=== PATIENT | female | born 1975 | race Caucasian/White ===

== ENCOUNTER 2019-12-24 10:08 | Outpatient (REF) | payer MEDICARE, MEDICAID, SELFPAY ==
[2019-12-24 14:44] LABS: Free T4 (Free Thyroxine) 1.26 ng/dL (0.71-1.85); Free T4 (Free Thyroxine) 1.36 ng/dL (0.71-1.85); Thyroid Stimulating Hormone 2.38 mIU/mL (0.32-4.0); Thyroid Stimulating Hormone 2.63 mIU/mL (0.32-4.0)
[2019-12-25 09:21] LABS: Follicle Stimulating Hormone 66.2 mIU/mL; Lutenizing Hormone 22.4 mIU/mL; Triiodothyronine T3 Total 104 ng/dL (76-181)
[2019-12-30 01:07] LABS: FT4 by Equilib. Dialysis 1.6 ng/dL (0.9-2.2)
[2019-12-30 20:22] LABS: Estradiol Ultra Sensitive 4 pg/mL
[2019-12-31 22:21] LABS: Estradiol Free 0.13 pg/mL; Estradiol, Ultrasensitive 6 pg/mL
[2020-01-01 00:12] LABS: Estrogen 67.2 pg/mL
== END 2019-12-24 10:09 | disposition home or self-care (01) ==
LOC: HO.10HDL 10:08
PROVIDERS: Visit Provider Internal Medicine Endocrinology, Diabetes & Metabolism
DX: E03.9 Hypothyroidism, unspecified (principal); R23.2 Flushing
CPT/HCPCS: 82670; 82672; 83001; 83002; 84439; 84443; 84480

== ENCOUNTER 2019-12-27 10:45 | Outpatient (REF) | payer MEDICARE, MEDICAID, SELFPAY ==
[2019-12-28 19:07] LABS: Triiodothyronine T3 Total 184 ng/dL (76-181)
== END 2019-12-27 10:46 | disposition home or self-care (01) ==
LOC: HO.10HDL 10:45
PROVIDERS: PCP Nurse Practitioner Family; Visit Provider Internal Medicine Endocrinology, Diabetes & Metabolism
DX: E03.9 Hypothyroidism, unspecified (principal)
CPT/HCPCS: 84480

== ENCOUNTER → 2020-05-29 12:41 | Outpatient (BNVA) | payer MEDICARE, MEDICAID, SELFPAY | PROVIDERS: PCP Nurse Practitioner Family; Referring Provider Nurse Practitioner Family; Visit Provider Internal Medicine Endocrinology, Diabetes & Metabolism | DX: E03.9 Hypothyroidism, unspecified (principal); N95.1 Menopausal and female climacteric states | CPT/HCPCS: Q3014 ==

== ENCOUNTER 2020-06-27 10:54 | Outpatient (REF) | payer MEDICARE, MEDICAID, SELFPAY ==
[2020-06-27 14:43] LABS: Thyroid Stimulating Hormone 0.15 uIU/mL (0.32-4.0)
== END 2020-06-27 10:55 | disposition home or self-care (01) ==
LOC: HO.10HDL 10:54
PROVIDERS: Visit Provider Internal Medicine Endocrinology, Diabetes & Metabolism
DX: E03.9 Hypothyroidism, unspecified (principal)
CPT/HCPCS: 36415; 84439; 84443

== ENCOUNTER 2024-08-09 20:35 | Emergency (ER) | payer MEDICARE, MEDICAID, SELFPAY ==
--- NOTE | 2024-08-09 | ECG_ITS ---
Test Reason : SYNCOPE Blood Pressure : */* mmHG Vent. Rate : 61 BPM Atrial Rate : 61 BPM P-R Int : 172 ms QRS Dur : 76 ms QT Int : 402 ms P-R-T Axes : 38 3 12 degrees QTcB Int : 404 ms Normal sinus rhythm Cannot rule out Inferior infarct , age undetermined ; can be normal variant Borderline ECG No previous ECGs available Referred By: Generic ED Physician Electronically Signed By: CHRISTINA LAWRENCE
--- NOTE | ~2024-08-09 | CT_ITS ---
CLINICAL HISTORY: s p fall CT Head WO Contrast COMPARISON: None FINDINGS: No acute intracranial hemorrhage. No evidence of acute infarction. No mass-effect or midline shift. No hydrocephalus. Visualized paranasal sinuses are clear. The mastoid air cells are clear. The visible orbits are normal. No acute fracture. Right parietal scalp soft tissue injury. IMPRESSION: No acute intracranial findings. Scalp soft tissue injury. This document has been electronically signed by: Martir Landa MD on 08/10/2024 01:37:20
--- NOTE | ~2024-08-09 | CT_ITS ---
CLINICAL HISTORY: fall CT Cervical Spine WO Contrast COMPARISON: None FINDINGS: No acute fracture or malalignment. Mild degenerative changes in the spine. Soft tissues are normal. Lung apices are clear. IMPRESSION: No acute findings. This document has been electronically signed by: Martir Landa MD on 08/10/2024 01:27:06
[2024-08-09 20:48] VITALS: BP 124/66; BP 97/53; PULSE 64; PULSE 66; RESP 20; TEMP 36; O2SAT 100; BMI 26.6
[2024-08-09 21:26] LABS: MANUAL DIFF FLAG NO
[2024-08-09 21:31] LABS: Basophils Absolute Auto 0.1 X10*3/uL (0.0-0.2); Basophils Percent Auto 0.6 % (0-2); Eosinophils Absolute Auto 0.2 X10*3/uL (0.0-0.4); Eosinophils Percent Auto 1.7 % (0-4); Hematocrit 42.1 % (37.0-47.0); Hemoglobin 13.2 g/dl (12.0-16.0); Imm Gran Abs Auto 0.09 X10*3/uL (0.00-0.03); Imm Gran Pct Auto 0.6 % (0.0-0.4); Lymphocytes Absolute Auto 4.6 X10*3/uL (1.2-4.9); Lymphocytes Percent Auto 32.9 % (20-40); Mean Corpuscular HGB Conc 31.4 g/dl (31.0-35.0); Mean Corpuscular Volume 89.4 fL (80.0-98.0); Mean Platelet Volume 10.1 fL (9.4-12.3); Monocytes Absolute Auto 0.8 X10*3/uL (0.1-1.2); Monocytes Percent Auto 5.7 % (2-11); Neutrophils Absolute Auto 8.2 x10*3/uL (2.0-8.3); Neutrophils Percent Auto 58.5 % (45-73); Platelet Count 350 X10*3/uL (160-400); Red Blood Count 4.71 X10*6/uL (4.20-5.50); Red Cell Distribution Width 14.1 % (11.0-16.0)
[2024-08-09 21:45] LABS: Alanine Aminotransferase 14 U/L (0-31); Albumin Level 4.5 g/dL (3.5-5.0); Alkaline Phosphatase 86 U/L (39-117); Anion Gap 12 (12-20); Aspartate Amino Transferase 15 U/L (5-31); Bilirubin Total 0.2 mg/dL (0.0-1.0); Blood Urea Nitrogen 16 mg/dL (9-16); Calcium 9.7 mg/dL (8.4-10.2); Carbon Dioxide 25 mmol/L (22-29); Chloride 109 mmol/L (96-108); Creatinine Clr Calc Pharmacy 75.7; Estimated Glomerular Filt Rate > 60; Glucose Random 112 mg/dL (60-115); Potassium 4.3 mmol/L (3.3-5.1); Sodium 142 mmol/L (135-145); Total Protein 7.1 g/dL (6.5-8.0)
[2024-08-09 22:06] LABS: Troponin-I High Sensitivity < 2.7 ng/L (<3.5-17.0)
--- NOTE | 2024-08-09 23:05 | ED_ITS ---
HPI - Syncope General Chief Complaint: Syncope Stated Complaint: SYNCOPE Time Seen by Provider: 08/09/24 23:00 Source: patient Mode of arrival: ambulatory Limitations: no limitations History of Present Illness ED Provider: HPI narrative: patient's history of hypothyroidism otherwise healthy no family history of seizures no history of syncope was at the [employer] game standing suddenly syncopized fell and hit the head to the curb psych family member noticed patient was with increased tone and eyes up rolled no seizure activity patient does not remember the event and was noted to be confused after the event no incontinence no tongue bite denies any chest pain or palpitation Related Data Home Medications ?Medication ?Instructions ?Recorded ?Confirmed clonazepam 1 mg tablet 1 mg PO BEDTIME PRN 05/29/20 05/29/20 dicyclomine 20 mg tablet 20 mg PO QID 05/29/20 05/29/20 lamotrigine 150 mg tablet 150 mg PO DAILY 05/29/20 05/29/20 olanzapine 2.5 mg tablet 2.5 mg PO BEDTIME 05/29/20 05/29/20 prazosin 5 mg capsule 5 mg PO BEDTIME 05/29/20 05/29/20 Previous Rx's ?Medication ?Instructions ?Recorded Tirosint 150 mcg capsule 300 mcg (2 x 150 mcg) PO DAILY 30 12/19/20 (levothyroxine) days #60 caps Allergies Allergy/AdvReac Type Severity Reaction Status Date / Time acetaminophen [Percocet] Allergy Unknown Unknown Verified 08/09/24 20:51 oxycodone [Percocet] Allergy Unknown Unknown Verified 08/09/24 20:51 tramadol Allergy Unknown Unknown Verified 08/09/24 20:51 ziprasidone [Geodon] Allergy Unknown Unknown Verified 08/09/24 20:51 Ibuprofen Allergy Unknown Unknown Uncoded 08/09/24 20:51 Review of Systems 2 Review of Systems: Yes all other systems are reviewed and are negative PMF Past Medical History Medical History Vasomotor symptoms due to menopause Hot flashes Hypothyroidism Surgical History History of right oophorectomy Hx of hysterectomy Hx of cholecystectomy Family History Family History Mother Diabetes Social History Social History Household Members: None Advance Directives: No Advance Directives Information Provided: No Physical Exam 2 Vital Signs: Vital Signs: Last Vital Signs Temp 97.7 F 08/10/24 01:33 Pulse 53 08/10/24 01:33 Resp 16 08/10/24 01:33 BP 111/57 L 08/10/24 01:33 Pulse Ox 100 08/10/24 01:33 O2 Del Method Room Air 08/10/24 01:33 BMI result Body Mass Index 26.6 Appearance: Alert. Oriented X3. No acute distress. Eyes: PERRLA, No Nystagmus ENT: Pharynx normal. Oral Mucosa moist no tongue bite Neck: Normal inspection. Neck supple. no midline tenderness CVS: Normal heart rate and rhythm. Pulses normal. Respiratory: No respiratory distress. Equal air entry bilateral, no wheezing/rales/rhonchi Abdomen: Soft and nontender. Bowel sounds are present, no mass palpable, no CVA tenderness Skin: Skin warm and dry. Normal skin color. Normal skin turgor. Extremities: No lower extremity edema. No calf tenderness Neuro: Oriented X 3. No motor deficit. No sensory deficit.No cerebellar signs , cranial nerves II-XII intact Medications Administered Discontinued Medications Generic Name Dose Route Start Last Admin Trade Name Freq PRN Reason Stop Dose Admin Acetaminophen 975 mg 08/10/24 01:25 08/10/24 01:31 Acetaminophen 325 Mg Tablet PO 08/10/24 01:26 975 mg ONCE ONE Administration Ibuprofen 600 mg 08/10/24 01:17 08/10/24 01:24 Ibuprofen 600 Mg Tablet PO 08/10/24 01:18 Not Given ONCE ONE Medical Decision Making Medical Decision Making [facility] Narrative: patient's syncope episode etiology not very clear no seizure was noticed but patient was dense already taking Topamax for anxiety and depression. Head CT and cervical spine is negative labs are stable patient advised to follow with neurologist/ PCP for further evaluation enter report to the ER if she has more recurrence of the similar episodes Differential Diagnosis Differential Diagnoses: The differential diagnosis associated with the presentation includes new onset seizure / syncope episode/vasovagal Admission/Observation Consideration of admission/observation: Escalation of care including admission/observation considered Lab Data [facility] Lab Attestation statement: I reviewed the patient's lab results. 08/09/24 21:19 08/09/24 21:15 Labs: Lab Results 08/09/24 08/09/24 Range/Units 21:15 21:19 WBC 14.0 H (4.8-10.8) X10*3/uL RBC 4.71 (4.20-5.50) X10*6/uL Hgb 13.2 (12.0-16.0) g/dl Hct 42.1 (37.0-47.0) % MCV 89.4 (80.0-98.0) fL MCH 28.0 (27.0-33.0) pg MCHC 31.4 (31.0-35.0) g/dl RDW 14.1 (11.0-16.0) % Plt Count 350 (160-400) X10*3/uL MPV 10.1 (9.4-12.3) fL Immature Gran % (Auto) 0.6 H (0.0-0.4) % Neut % (Auto) 58.5 (45-73) % Lymph % (Auto) 32.9 (20-40) % [place] % (Auto) 5.7 (2-11) % Eos % (Auto) 1.7 (0-4) % Baso % (Auto) 0.6 (0-2) % Lymph # (Auto) 4.6 (1.2-4.9) X10*3/uL [place] # (Auto) 0.8 (0.1-1.2) X10*3/uL Eos # (Auto) 0.2 (0.0-0.4) X10*3/uL Baso # (Auto) 0.1 (0.0-0.2) X10*3/uL Abs Immat Gran (auto) 0.09 H (0.00-0.03) X10*3/uL Absolute Neuts (auto) 8.2 (2.0-8.3) x10*3/uL Absolute Nucleated RBC 0.000 (0.0-0.012) X10*3/uL Nucleated RBC % (auto) 0.0 (0.0-0.2) /100WBC Sodium 142 (135-145) mmol/L Potassium 4.3 (3.3-5.1) mmol/L Chloride 109 H (96-108) mmol/L Carbon Dioxide 25 (22-29) mmol/L Anion Gap 12 (12-20) BUN 16 (9-16) mg/dL Creatinine 0.94 (0.5-1.4) mg/dL Estim Creat Clear Calc 75.7 Estimated GFR > 60 Random Glucose 112 (60-115) mg/dL Calcium 9.7 (8.4-10.2) mg/dL Total Bilirubin 0.2 (0.0-1.0) mg/dL AST 15 (5-31) U/L ALT 14 (0-31) U/L Alkaline Phosphatase 86 (39-117) U/L Troponin I High Sens < 2.7 (<3.5-17.0) ng/L Total Protein 7.1 (6.5-8.0) g/dL Albumin 4.5 (3.5-5.0) g/dL Independent Interpretation I performed an independent interpretation of an: EKG Interpretation: normal sinus rhythm heart rate 61 beats per minute normal interval normal axis no acute STT wave changes no acute ischemia Radiology Impression Discussion of test interpretation with radiology: I have reviewed the radiologist's reading. Radiologist Impression: negative C-spine and head ct scan Discharge Plan Discharge Clinical Impression: Episode of syncope Patient Disposition: Home, Self-Care Instructions: Syncope (ED) Additional Instructions: cause of syncope is not clear possibly vasovagal versus seizure continue take your medication including Topamax follow with your PCP/neurologist for further workup report to the ER if recurrence of the episode Prescriptions: No Action Tirosint 150 mcg capsule 300 mcg PO DAILY 30 Days Qty: 60 5RF Rx Instructions: 2 capsules every day on an empty stomach. dicyclomine 20 mg tablet 20 mg PO QID prazosin 5 mg capsule 5 mg PO BEDTIME clonazepam 1 mg tablet 1 mg PO BEDTIME PRN olanzapine 2.5 mg tablet 2.5 mg PO BEDTIME lamotrigine 150 mg tablet 150 mg PO DAILY Referrals: Ky Robin MD [Physician] - 1 week Interventions: ED Discharge Assessment Last Done: 08/10/24 01:33 Discharge Date/Time: 08/10/24 01:34 Print Language: Luxembourgish
--- NOTE | 2024-08-10 00:25 | PC.NURSE ---
patient now alert and oriented to person place and time. pending CT scan results.
[2024-08-10 01:06] VITALS: BP 111/57; PULSE 53; RESP 16; TEMP 36.5; O2SAT 100
[2024-08-10] MEDS: Acetaminophen 325 MG TABLET 975 MG PO (01:31)
[2024-08-10 01:33] VITALS: BP 111/57; PULSE 53; RESP 16; TEMP 36.5; O2SAT 100
== END 2024-08-10 01:34 | disposition home or self-care (01) ==
PROVIDERS: Emergency Provider Internal Medicine
DX: R55 Syncope and collapse (principal); M54.2 Cervicalgia; R51.9 Headache, unspecified; R94.31 Abnormal electrocardiogram [ECG] [EKG]; Z79.899 Other long term (current) drug therapy
CPT/HCPCS: 36415; 70450; 72125; 80053; 84484; 85025; 93005; 99284

== ENCOUNTER → 2024-08-09 20:47 | Outpatient (BNV) | payer MEDICARE, MEDICAID, SELFPAY | PROVIDERS: Emergency Provider Internal Medicine; Visit Provider Internal Medicine | DX: R55 Syncope and collapse (principal) | CPT/HCPCS: 93010 ==

== ENCOUNTER → 2024-08-09 23:31 | Outpatient (BNV) | payer MEDICARE, MEDICAID, SELFPAY | PROVIDERS: Emergency Provider Internal Medicine; Visit Provider Radiology Diagnostic Radiology | DX: R55 Syncope and collapse (principal); S00.00XA Unspecified superficial injury of scalp, initial encounter; W19.XXXA Unspecified fall, initial encounter | CPT/HCPCS: 70450; 72125 ==